=== PATIENT | female | born 1960 | race American Indian/Alaskan Native ===

== ENCOUNTER 2017-02-04 22:40 | Emergency (ER) | payer MEDICAID ==
[2017-02-05 00:18] LABS: Basophils % (Auto) 0.3 % (0.0-1.8); Eosinophils % (Auto) 0.8 % (0.0-4.3); Hematocrit 50.1 % (30.3-42.9); Hemoglobin 16.7 gm/dl (10.1-14.3); Mean Corpuscular HGB Conc 33 % (30-34); Mean Corpuscular Hemoglobin 30 pg (28-32); Mean Corpuscular Volume 90 fl (79-97); Platelet Count 323 K/mm3 (140-440); Red Blood Count 5.54 M/mm3 (3.65-5.03); Red Cell Distribution Width 14.2 % (13.2-15.2); White Blood Count 8.6 K/mm3 (4.5-11.0)
[2017-02-05 00:38] LABS: Alanine Aminotransferase 19 units/L (7-56); Albumin/Globulin Ratio 1.1 %; Alkaline Phosphatase 71 units/L (35-129); Anion Gap 27 mmol/L; BUN/Creatinine Ratio 13; Blood Urea Nitrogen 14 mg/dL (7-17); Calcium 9.5 mg/dL (8.4-10.2); Carbon Dioxide 19 mmol/L (22-30); Chloride 100.5 mmol/L (98-107); Glucose 197 mg/dL (65-100); Lipase 41 units/L (13-60); Potassium 3.6 mmol/L (3.6-5.0); Sodium 143 mmol/L (137-145); Total Protein 7.5 g/dL (6.3-8.2)
[2017-02-05] MEDS ORDERED: APRESOLINE IV ONE (00:55)
[2017-02-05] MEDS ORDERED: ZOFRAN IV ONE ×3 (00:55→09:06)
[2017-02-05] MEDS ORDERED: MORPHINE IV ONE ×3 (00:56→09:06)
[2017-02-05 03:58] LABS: Creatine Kinase MB 3.2 ng/mL (0.0-4.0)
[2017-02-05 04:00] LABS: Creatine Kinase 88 units/L (30-135)
--- NOTE | 2017-02-05 04:05 | Emergency Department Report ---
ED Abdominal Pain HPI - General Chief Complaint: Abdominal Pain Stated Complaint: ABD PAIN Time Seen by Provider: 02/05/17 00:54 Source: patient Mode of arrival: Wheelchair Limitations: No Limitations - History of Present Illness Initial Comments: 56 yo female who comes in today due to abdominal pain. She states that it has been present since yesterday. She admits to a hx of diabetes and also gastroparesis. She states that she takes zofran for it, as she is allergic to reglan. Abdominal pain described as 12/03, diffuse, with nausea. The patient admits to being treated in the past for a similar complaint. MD Complaint: abdominal pain -: days(s) (1) Location: diffuse Radiation: none Migration to: no migration Severity: severe Severity scale (0 -10): 10 Quality: aching, sharp Consistency: constant Improves With: medication, rest Worsens With: movement Context: other (diabetic gastroparesis ) Associated Symptoms: nausea Treatments Prior to Arrival: other (none) - Related Data Home Medications Medication Instructions Recorded Confirmed Last Taken Unobtainable 02/05/17 02/05/17 Unknown Allergies Allergy/AdvReac Type Severity Reaction Status Date / Time metoclopramide [From Reglan] AdvReac Unknown Verified 02/04/17 22:49 ED Review of Systems ROS: Stated complaint: ABD PAIN Other details as noted in HPI Constitutional: denies: chills, fever Eyes: denies: eye pain, eye discharge, vision change ENT: denies: ear pain, throat pain Respiratory: denies: cough, shortness of breath, wheezing Cardiovascular: denies: chest pain, palpitations Endocrine: no symptoms reported Gastrointestinal: as per HPI, abdominal pain Genitourinary: denies: urgency, dysuria, discharge Musculoskeletal: denies: back pain, joint swelling, arthralgia Skin: denies: rash, lesions Neurological: denies: headache, weakness, paresthesias Psychiatric: anxiety Hematological/Lymphatic: denies: easy bleeding, easy bruising ED Past Medical Hx - Past Medical History Hx Hypertension: Yes Hx Congestive Heart Failure: Yes Hx Diabetes: Yes Hx GERD: Yes Additional medical history: Gastroparesis - Surgical History Hx Cholecystectomy: Yes - Social History Smoking Status: Current Every Day Smoker Substance Use Type: Alcohol - Medications Home Medications: Home Medications Medication Instructions Recorded Confirmed Last Taken Type Unobtainable 02/05/17 02/05/17 Unknown History ED Physical Exam - General Limitations: No Limitations General appearance: anxious (crying ) - Head Head exam: Present: atraumatic, normocephalic - Eye Eye exam: Present: normal appearance - ENT ENT exam: Present: mucous membranes moist - Neck Neck exam: Present: normal inspection - Respiratory Respiratory exam: Present: normal lung sounds bilaterally. Absent: respiratory distress - Cardiovascular Cardiovascular Exam: Present: tachycardia - GI/Abdominal GI/Abdominal exam: Present: tenderness (diffusely ) - Extremities Exam Extremities exam: Present: normal inspection - Back Exam Back exam: Present: normal inspection - Neurological Exam Neurological exam: Present: alert, oriented X3 - Psychiatric Psychiatric exam: Present: anxious (crying ) - Skin Skin exam: Present: warm, dry, intact, normal color. Absent: rash ED Course Vital Signs 02/04/17 02/05/17 02/05/17 22:50 00:46 00:48 Temperature 98.5 F Pulse Rate 109 H 108 H 111 H Respiratory 20 21 22 Rate Blood Pressure 168/106 O2 Sat by Pulse 99 100 Oximetry 02/05/17 02/05/17 02/05/17 00:50 00:52 00:54 Temperature Pulse Rate 101 H 99 H 106 H Respiratory 20 37 H 38 H Rate Blood Pressure 215/138 215/138 O2 Sat by Pulse 98 100 100 Oximetry 02/05/17 02/05/17 02/05/17 00:57 01:00 01:54 Temperature Pulse Rate 106 H 106 H Respiratory 28 H 23 18 Rate Blood Pressure 215/138 O2 Sat by Pulse 100 100 Oximetry 02/05/17 02/05/17 02/05/17 01:56 02:00 02:01 Temperature Pulse Rate 108 H 103 H 108 H Respiratory 33 H 19 Rate Blood Pressure 215/138 215/138 215/138 O2 Sat by Pulse 100 100 Oximetry 02/05/17 02/05/17 02/05/17 02:02 02:30 03:00 Temperature Pulse Rate 98 H 104 H Respiratory 22 22 20 Rate Blood Pressure 199/112 177/100 O2 Sat by Pulse 96 99 Oximetry 02/05/17 02/05/17 02/05/17 03:30 03:44 04:00 Temperature Pulse Rate 109 H 102 H Respiratory 43 H 20 31 H Rate Blood Pressure 188/102 185/105 O2 Sat by Pulse 99 99 Oximetry 02/05/17 04:30 Temperature Pulse Rate 98 H Respiratory 16 Rate Blood Pressure 135/108 O2 Sat by Pulse 96 Oximetry - Reevaluation(s) Reevaluation #1: 02/05/17 06:[address] Gutiérrez. Dr. Gutiérrez to assume care of the patient. ED Medical Decision Making - Lab Data Result diagrams: 02/04/17 23:30 02/04/17 23:30 Critical care attestation.: If time is entered above; I have spent that time in minutes in the direct care of this critically ill patient, excluding procedure time. ED Disposition Condition: Stable Instructions: Abdominal Pain (ED) Referrals: LEONARDA WILCOX MD [Primary Care Provider] - 3-5 Days
--- NOTE | 2017-02-05 04:16 | XRay Report ---
FINAL REPORT EXAM: XR ABD SERIES W CXR 1V HISTORY: Abdominal pain. TECHNIQUE: A frontal radiograph of the chest and supine and erect frontal radiographs of the abdomen were obtained. No prior studies are available for comparison. FINDINGS: The heart is mildly enlarged. The lungs are clear bilaterally, without focal infiltrate or effusion. There is no pneumothorax. There is a nonspecific bowel gas pattern, with no abnormal bowel dilatation to suggest intestinal obstruction. No free air or air-fluid levels are seen on the erect film. There is residual stool seen in the right colon. Multiple vascular calcifications and calcified phleboliths are seen in the pelvis. There are moderate spondylotic and degenerative changes seen in the spine. There is also mild degenerative change at the left hip. IMPRESSION: No intestinal obstruction or free air. Cardiomegaly.
[2017-02-05] MEDS ORDERED: NACL ONE (04:40)
--- NOTE | 2017-02-05 06:53 | Cat Scan Report ---
FINAL REPORT EXAM: CT ABDOMEN PELVIS W CONTRAST. HISTORY: Abdominal pain. TECHNIQUE: Axial CT images of the abdomen and pelvis were obtained, following the administration of intravenous contrast only. Delayed axial images and coronal and sagittal reformatted images were also obtained. No prior studies are available for comparison. FINDINGS: There is mild diffuse fatty infiltration of the liver. The gallbladder is not discretely visualized. The biliary tree, pancreas, spleen, and kidneys are unremarkable. There is diffuse thickening of the bilateral adrenal glands, likely due to hyperplasia. There is suggestion of a superimposed 1.4 x 1.0 cm nodule in the inferior left adrenal gland, not fully characterized on this exam. Evaluation of the bowel is limited due to lack of oral contrast. There is a small hiatal hernia. The stomach is partially collapsed, not well evaluated. Underlying wall thickening at the distal stomach and proximal duodenum cannot be excluded. There is residual stool in the colon, particularly in the rectum. There is no intestinal obstruction or free air. Of note, the appendix is air-filled, normal in appearance. There are scattered diverticula in the colon. The abdominal aorta is normal in caliber. There is no pathologic abdominal or pelvic lymphadenopathy. There is no free or loculated fluid collection. The patient is status post hysterectomy. A 1.0 cm right adnexal/ovarian cyst is noted. The urinary bladder is moderately collapsed, not well evaluated. Minimal spondylotic changes are seen in the spine. There are mild degenerative changes at both sacroiliac joints and both hips. There are scattered foci of minimal linear scarring at both lung bases. There are additional scattered foci of subsegmental dependent atelectasis posteriorly. The heart is enlarged. IMPRESSION: 1. No intestinal obstruction or free air. Normal CT appearance of the appendix. Scattered colonic diverticula. 2. Partially collapsed stomach, and underlying wall thickening of the distal stomach/proximal duodenum cannot be excluded. Clinical correlation is recommended. 3. Mild diffuse fatty infiltration of the liver. 4. 1.4 x 1.0 cm nodule in the inferior left adrenal gland, not fully characterized. 5. 1.0 cm right ovarian cyst.
[2017-02-05] MEDS ORDERED: ZOFRAN ONE (09:03)
[2017-02-05] MEDS ORDERED: MORPHINE ONE (09:04)
--- NOTE | 2017-02-05 09:11 | Emergency Department Report ---
Blank Doc - Documentation Documentation: I examine Mrs. quiroga, she is lying in peds, comfortable in no acute distress she stated that her nausea is much better she still having some abdominal pain. I offer morphine 4 mg and Zofran 4 mg and I will give her prescription for Zofran and Ultram. I informed about her CT scan of the abdomen and pelvis results and advised that to follow up with her primary care physician in the next 2-3 days. I advised to return to the ER if her symptoms is not improving.
[2017-02-05 09:34] VITALS: BP 150/88
== END 2017-02-05 09:39 | disposition home or self-care (01) ==
LOC: ED 22:40
DX: R10.84 Generalized abdominal pain (principal); R11.0 Nausea
CPT/HCPCS: 36415; 74022; 74177; 80053; 82550; 82553; 83690; 84484; 85025; 96374; 96375; 96376; 99285; J0360; J2270; J2405; Q9967

== ENCOUNTER 2017-02-25 19:41 | Emergency (ER) | payer MEDICAID ==
[2017-02-25] MEDS ORDERED: NACL 0.9% 1000 ML 1,000 ML IV ONE ×2 (20:12→22:15)
[2017-02-25] MEDS ORDERED: ZOFRAN IV ONE (20:17)
[2017-02-25] MEDS ORDERED: ZOFRAN ODT PO ONE (20:19)
[2017-02-25] MEDS ORDERED: ZOFRAN ONE (20:21)
[2017-02-25] MEDS ORDERED: MORPHINE IV ONE (20:27)
[2017-02-25 20:43] LABS: Basophils % (Auto) 0.5 % (0.0-1.8); Eosinophils # (Auto) 0.1 K/mm3 (0.0-0.4); Eosinophils % (Auto) 0.7 % (0.0-4.3); Hematocrit 51.4 % (30.3-42.9); Hemoglobin 17.2 gm/dl (10.1-14.3); Lymphocytes # (Auto) 2.1 K/mm3 (1.2-5.4); Lymphocytes % (Auto) 23.2 % (13.4-35.0); Mean Corpuscular HGB Conc 33 % (30-34); Mean Corpuscular Hemoglobin 30 pg (28-32); Mean Corpuscular Volume 90 fl (79-97); Monocytes # (Auto) 0.7 K/mm3 (0.0-0.8); Monocytes % (Auto) 8.1 % (0.0-7.3); Platelet Count 346 K/mm3 (140-440); Red Blood Count 5.71 M/mm3 (3.65-5.03); Red Cell Distribution Width 14.1 % (13.2-15.2)
--- NOTE | 2017-02-25 20:50 | Emergency Department Report ---
ED N/V/D HPI - General Chief complaint: Nausea/Vomiting/Diarrhea Stated complaint: ABD PAIN Time Seen by Provider: 02/25/17 20:16 Source: patient, EMS Mode of arrival: Stretcher Limitations: No Limitations - History of Present Illness Initial comments: Patient with known gastroparesis seen last month at which time morphine and zofran controlled her symptoms. She was voluntarily trying to vomit but able to talk on initial evaluation. MD complaint: vomiting, abdominal pain -: week(s) (5) Description of Vomiting: bilious Description of Diarrhea: other (none) Associated Abdominal Pain: Yes Location: diffuse Radiation: none Severity: severe Pain Scale: 10 Quality: sharp Consistency: constant, colicky Improves with: none Worsens with: eating, movement Context: other (Diabetic gastroparesis) Associated Symptoms: nausea/vomiting - Related Data Previous Rx's Medication Instructions Recorded Last Taken Type Ondansetron [Zofran Odt] 4 mg PO Q8HR PRN #14 tab.rapdis 02/05/17 Unknown Rx traMADol [Ultram 50 MG tab] 50 mg PO Q4HR PRN #14 tablet 02/05/17 Unknown Rx traMADol [Ultram 50 MG tab] 50 mg PO Q6HR PRN #12 tablet 02/26/17 Unknown Rx Allergies Allergy/AdvReac Type Severity Reaction Status Date / Time metoclopramide [From Reglan] AdvReac Unknown Verified 02/04/17 22:49 ED Review of Systems ROS: Stated complaint: ABD PAIN Other details as noted in HPI Constitutional: denies: chills, fever Eyes: denies: eye pain, eye discharge, vision change ENT: denies: ear pain, throat pain Respiratory: denies: cough, shortness of breath, wheezing Cardiovascular: denies: chest pain, palpitations Endocrine: no symptoms reported Gastrointestinal: abdominal pain, nausea, vomiting. denies: diarrhea Genitourinary: denies: urgency, dysuria, discharge Musculoskeletal: denies: back pain, joint swelling, arthralgia Skin: denies: rash, lesions Neurological: denies: headache, weakness, paresthesias Psychiatric: denies: anxiety, depression Hematological/Lymphatic: denies: easy bleeding, easy bruising ED Past Medical Hx - Past Medical History Hx Hypertension: Yes Hx Congestive Heart Failure: Yes Hx Diabetes: Yes Hx GERD: Yes Additional medical history: Gastroparesis - Surgical History Hx Cholecystectomy: Yes - Social History Smoking Status: Never Smoker Substance Use Type: None - Medications Home Medications: Home Medications Medication Instructions Recorded Confirmed Last Taken Type Ondansetron [Zofran Odt] 4 mg PO Q8HR PRN #14 tab.rapdis 02/05/17 Unknown Rx traMADol [Ultram 50 MG tab] 50 mg PO Q4HR PRN #14 tablet 02/05/17 Unknown Rx traMADol [Ultram 50 MG tab] 50 mg PO Q6HR PRN #12 tablet 02/26/17 Unknown Rx ED Physical Exam - General Limitations: No Limitations General appearance: alert, in no apparent distress - Head Head exam: Present: atraumatic, normocephalic - Eye Eye exam: Present: normal appearance - ENT ENT exam: Present: mucous membranes moist - Neck Neck exam: Present: normal inspection - Respiratory Respiratory exam: Present: normal lung sounds bilaterally. Absent: respiratory distress - Cardiovascular Cardiovascular Exam: Present: regular rate, normal rhythm. Absent: systolic murmur, diastolic murmur, rubs, gallop - GI/Abdominal GI/Abdominal exam: Present: soft, tenderness (diffusely with no peritonitis.), normal bowel sounds - Extremities Exam Extremities exam: Present: normal inspection - Back Exam Back exam: Present: normal inspection - Neurological Exam Neurological exam: Present: alert, oriented X3 - Psychiatric Psychiatric exam: Present: normal affect, normal mood - Skin Skin exam: Present: warm, dry, intact, normal color. Absent: rash ED Course Vital Signs 02/25/17 02/25/17 02/25/17 19:56 20:00 20:05 Temperature 98.4 F Pulse Rate 125 H Respiratory 18 Rate Blood Pressure 218/160 O2 Sat by Pulse 100 97 Oximetry 02/25/17 02/25/17 02/25/17 20:15 20:30 20:45 Temperature Pulse Rate 104 H 101 H 97 H Respiratory 41 H 31 H 17 Rate Blood Pressure 218/160 218/130 218/130 O2 Sat by Pulse 99 99 99 Oximetry 02/25/17 02/25/17 02/25/17 21:00 21:33 21:36 Temperature 98.4 F Pulse Rate 100 H 98 H Respiratory 22 Rate Blood Pressure 211/135 211/135 O2 Sat by Pulse 99 99 Oximetry ED Medical Decision Making - Lab Data Result diagrams: 02/25/17 20:25 02/25/17 20:25 Elevated hgb and slightly increased Creatinine. - Radiology Data Radiology results: report reviewed No acute changes from 02/05/17 CT. Has fatty liver and mild gastritis with wall thickening. - Medical Decision Making Patient with gastroparesis with last Rx of Tramadol in early January. Will write tramadol and send home. No acute distress. Critical care attestation.: If time is entered above; I have spent that time in minutes in the direct care of this critically ill patient, excluding procedure time. ED Disposition Clinical Impression: Gastroparesis due to DM Disposition: DC-01 TO HOME OR SELFCARE Is pt being admited?: No Does the pt Need Aspirin: No Condition: Good Instructions: Diabetes Mellitus Type 2 in Adults (ED) Prescriptions: traMADol [Ultram 50 MG tab] 50 mg PO Q6HR PRN #12 tablet PRN Reason: Pain Referrals: [facility] [Outside] - 3-5 Days Time of Disposition: 00:23
[2017-02-25 21:03] LABS: Albumin 4.4 g/dL (3.9-5); Calcium 10.2 mg/dL (8.4-10.2)
[2017-02-25] MEDS ORDERED: BENTYL IM ONE (21:12)
[2017-02-25] MEDS ORDERED: LOPRESSOR IV ONE (21:12)
[2017-02-25] MEDS ORDERED: NACL ONE (22:21)
[2017-02-25] MEDS ORDERED: DILAUDID IV ONE (22:58)
[2017-02-25] MEDS ORDERED: DILAUDID ONE (23:02)
[2017-02-26 01:22] VITALS: BP 200/128
--- NOTE | 2017-02-26 04:50 | Cat Scan Report ---
FINAL REPORT PROCEDURE: CT ABDOMEN PELVIS W CON TECHNIQUE: Computerized axial tomography of the abdomen and pelvis was performed after the IV injection of iodinated nonionic contrast. HISTORY: abdominal pain COMPARISON: 02/05/2017 FINDINGS: Visualized lower thorax: No significant abnormality. Liver: Normal size and attenuation. Spleen: Normal size and attenuation. Gallbladder and biliary system: There has been a cholecystectomy. The bile ducts are normal in caliber.. Pancreas: Normal. Adrenals: Normal. Kidneys: Normal. GI tract: There is mucosal thickening of the stomach antrum which could be evidence of gastritis. There is no obstruction or mass. The small bowel, colon and appendix are normal.. Lymph nodes and mesentery: Normal. Vasculature: There is calcified plaque in the abdominal aorta. There is no aneurysm.. Bladder: Normal. Reproductive organs: There has been a hysterectomy. Peritoneum: There is no ascites, free air, abscess or adenopathy.. Musculoskeletal structures: No significant abnormality. Other: None. IMPRESSION: There has been a cholecystectomy. The bile ducts are normal in caliber.. There is mucosal thickening of the stomach antrum which could be evidence of gastritis. There is no obstruction or mass. The small bowel, colon and appendix are normal.. There has been a hysterectomy. There is no ascites, free air, abscess or adenopathy..
== END 2017-02-26 02:09 | disposition home or self-care (01) ==
LOC: ED 19:41
DX: E11.43 Type 2 diabetes mellitus with diabetic autonomic (poly)neuropathy (principal); K31.84 Gastroparesis; I11.0 Hypertensive heart disease with heart failure; I50.9 Heart failure, unspecified; K21.9 Gastro-esophageal reflux disease without esophagitis; Z88.8 Allergy status to other drugs, medicaments and biological substances
CPT/HCPCS: 36415; 74177; 80053; 82962; 85025; 96361; 96372; 96374; 96375; 99284; J0500; J1170; J2270; J2405; J7030; Q9967; J1815

== ENCOUNTER 2017-03-03 13:04 | Emergency (ER) | payer MEDICAID ==
[2017-03-03 14:26] LABS: Basophils % (Auto) 0.7 % (0.0-1.8); Eosinophils # (Auto) 0.1 K/mm3 (0.0-0.4); Eosinophils % (Auto) 2.1 % (0.0-4.3); Hematocrit 46.6 % (30.3-42.9); Hemoglobin 15.7 gm/dl (10.1-14.3); Lymphocytes # (Auto) 1.9 K/mm3 (1.2-5.4); Lymphocytes % (Auto) 28.2 % (13.4-35.0); Mean Corpuscular HGB Conc 34 % (30-34); Mean Corpuscular Hemoglobin 31 pg (28-32); Mean Corpuscular Volume 91 fl (79-97); Monocytes # (Auto) 0.7 K/mm3 (0.0-0.8); Monocytes % (Auto) 10.5 % (0.0-7.3); Platelet Count 263 K/mm3 (140-440); Red Blood Count 5.12 M/mm3 (3.65-5.03); Red Cell Distribution Width 14.3 % (13.2-15.2)
[2017-03-03 14:48] LABS: Albumin 3.8 g/dL (3.9-5); Calcium 9.1 mg/dL (8.4-10.2)
[2017-03-03 16:24] LABS: Bilirubin,Urine NEG (Negative); Blood,Urine NEG (Negative); Color,Urine Yellow (Yellow); Nitrite,Urine NEG (Negative); Urobilinogen,Urine < 2.0 mg/dL (<2.0)
[2017-03-04 00:42] VITALS: BP 165/92
[2017-03-04] MEDS ORDERED: ZOFRAN IV ONE (01:05)
[2017-03-04] MEDS ORDERED: DILAUDID IV ONE (01:05)
[2017-03-04] MEDS ORDERED: BENTYL PO ONE (01:05)
[2017-03-04] MEDS ORDERED: CARAFATE PO ONE (01:05)
[2017-03-04] MEDS ORDERED: DILAUDID ONE (02:22)
--- NOTE | 2017-03-04 02:24 | Emergency Department Report ---
ED General Adult HPI - General Chief complaint: Abdominal Pain Stated complaint: NAUSEA/VOMITING/PAIN ALL OVER Time Seen by Provider: 03/04/17 00:55 Source: patient, RN notes reviewed, old records reviewed Mode of arrival: Ambulatory Limitations: No Limitations - History of Present Illness Initial comments: This is a 56-year-old female, patient is previously unknown to this provider, patient has a past medical history of diabetes, GERD, hypertension, gastroparesis. Patient has been seen at least twice in the past month for gastroparesis symptoms. Patient's had 2 CAT scans of the abdomen and pelvis in the past month as well, which have been negative for significant findings, and multiple incidental findings. Patient presents to the ER today with a complaint of acute on chronic abdominal pain. Her abdominal pain is achy and sharp" all over." It increases with palpation, decreases with rest, and pain medication. Patient reports difficulty eating, she reports that even spells of food upset her. Patient's reports that she is passing gas, defecating, denies fevers, chills, chest pain, service of breath, urinary symptoms, vaginal discharge. -: Gradual Location: abdomen Radiation: abdomen Severity scale (0 -10): 0 Quality: burning, stabbing, aching Consistency: intermittent Improves with: medication, rest Worsens with: eating Associated Symptoms: loss of appetite, malaise, nausea/vomiting. denies: confusion, chest pain, cough, diaphoresis, fever/chills, headaches, rash, seizure, shortness of breath, syncope, weakness - Related Data Previous Rx's Medication Instructions Recorded Last Taken Type Ondansetron [Zofran Odt] 4 mg PO Q8HR PRN #14 tab.rapdis 02/05/17 Unknown Rx traMADol [Ultram 50 MG tab] 50 mg PO Q4HR PRN #14 tablet 02/05/17 Unknown Rx traMADol [Ultram 50 MG tab] 50 mg PO Q6HR PRN #12 tablet 02/26/17 Unknown Rx Dicyclomine [Bentyl] 10 mg PO QID PRN #20 capsule 03/04/17 Unknown Rx Famotidine [Pepcid] 20 mg PO QDAY #30 tablet 03/04/17 Unknown Rx Promethazine [Phenergan SUPPOS] 50 mg MO Q6H PRN #20 supp.rect 03/04/17 Unknown Rx Allergies Allergy/AdvReac Type Severity Reaction Status Date / Time metoclopramide [From Reglan] AdvReac Unknown Verified 02/04/17 22:49 ED Review of Systems ROS: Stated complaint: NAUSEA/VOMITING/PAIN ALL OVER Other details as noted in HPI ED Past Medical Hx - Past Medical History Hx Hypertension: Yes Hx Congestive Heart Failure: Yes Hx Diabetes: Yes Hx GERD: Yes Additional medical history: Gastroparesis - Surgical History Hx Cholecystectomy: Yes - Social History Smoking Status: Current Every Day Smoker Substance Use Type: Alcohol - Medications Home Medications: Home Medications Medication Instructions Recorded Confirmed Last Taken Type Ondansetron [Zofran Odt] 4 mg PO Q8HR PRN #14 tab.rapdis 02/05/17 Unknown Rx traMADol [Ultram 50 MG tab] 50 mg PO Q4HR PRN #14 tablet 02/05/17 Unknown Rx traMADol [Ultram 50 MG tab] 50 mg PO Q6HR PRN #12 tablet 02/26/17 Unknown Rx Dicyclomine [Bentyl] 10 mg PO QID PRN #20 capsule 03/04/17 Unknown Rx Famotidine [Pepcid] 20 mg PO QDAY #30 tablet 03/04/17 Unknown Rx Promethazine [Phenergan SUPPOS] 50 mg MO Q6H PRN #20 supp.rect 03/04/17 Unknown Rx ED Physical Exam - General Limitations: No Limitations General appearance: alert, in no apparent distress - Head Head exam: Present: atraumatic, normocephalic - Eye Eye exam: Present: normal appearance, EOMI. Absent: nystagmus - ENT ENT exam: Present: normal exam, normal orophraynx, mucous membranes moist, normal external ear exam - Neck Neck exam: Present: normal inspection, full ROM - Respiratory Respiratory exam: Present: normal lung sounds bilaterally. Absent: respiratory distress - Cardiovascular Cardiovascular Exam: Present: regular rate, normal rhythm, normal heart sounds. Absent: systolic murmur, diastolic murmur, rubs, gallop - GI/Abdominal GI/Abdominal exam: Present: soft, normal bowel sounds. Absent: distended, tenderness, guarding, rebound, rigid, pulsatile mass - Extremities Exam Extremities exam: Present: normal inspection, full ROM, normal capillary refill. Absent: pedal edema, joint swelling, calf tenderness - Back Exam Back exam: Present: normal inspection, full ROM. Absent: tenderness, CVA tenderness (R), paraspinal tenderness, vertebral tenderness - Neurological Exam Neurological exam: Present: alert, oriented X3, CN II-XII intact, normal gait. Absent: motor sensory deficit, other (Extraocular movements intact. Tongue midline. No facial droop. Facial sensation intact to light touch in the V1, V2 , V3 distribution bilaterally. 5 and 5 strength in 4 extremities.. Sensation is intact to light touch in 4 extremities.) - Psychiatric Psychiatric exam: Present: anxious - Skin Skin exam: Present: warm, dry, intact, normal color. Absent: rash ED Course Vital Signs 03/03/17 03/03/17 03/04/17 13:48 23:19 00:05 Temperature 98.2 F 98.3 F 98.7 F Pulse Rate 84 82 78 Respiratory 18 18 18 Rate Blood Pressure 160/106 183/109 Blood Pressure 165/92 [Left] O2 Sat by Pulse 97 99 100 Oximetry - Reevaluation(s) Reevaluation #1: 03/04/17 02:58 Patient feels improved, tolerating liquid feeds, vital signs unremarkable with the exception of elevated blood pressure, patient will be discharged at this time, she can follow up with outpatient primary care or gastroenterology. ED Medical Decision Making - Lab Data Result diagrams: 03/03/17 14:06 03/03/17 14:06 Vital Signs 03/03/17 03/03/17 03/04/17 13:48 23:19 00:05 Temperature 98.2 F 98.3 F 98.7 F Pulse Rate 84 82 78 Respiratory 18 18 18 Rate Blood Pressure 160/106 183/109 Blood Pressure 165/92 [Left] O2 Sat by Pulse 97 99 100 Oximetry Lab Results 03/03/17 03/03/17 03/03/17 Range/Units 14:06 14:06 15:30 WBC 6.6 (4.5-11.0) K/mm3 RBC 5.12 H (3.65-5.03) M/mm3 Hgb 15.7 H (10.1-14.3) gm/dl Hct 46.6 H (30.3-42.9) % MCV 91 (79-97) fl MCH 31 (28-32) pg MCHC 34 (30-34) % RDW 14.3 (13.2-15.2) % Plt Count 263 (140-440) K/mm3 Lymph % (Auto) 28.2 (13.4-35.0) % [place] % (Auto) 10.5 H (0.0-7.3) % Eos % (Auto) 2.1 (0.0-4.3) % Baso % (Auto) 0.7 (0.0-1.8) % Lymph # 1.9 (1.2-5.4) K/mm3 [place] # 0.7 (0.0-0.8) K/mm3 Eos # 0.1 (0.0-0.4) K/mm3 Baso # 0.0 (0.0-0.1) K/mm3 Seg Neutrophils % 58.5 (40.0-70.0) % Seg Neutrophils # 3.9 (1.8-7.7) K/mm3 Sodium 139 (137-145) mmol/L Potassium 3.7 (3.6-5.0) mmol/L Chloride 97.5 L (98-107) mmol/L Carbon Dioxide 28 (22-30) mmol/L Anion Gap 17 mmol/L BUN 17 (7-17) mg/dL Creatinine 1.2 (0.7-1.2) mg/dL Estimated GFR 57 ml/min BUN/Creatinine Ratio 14 % Glucose 181 H (65-100) mg/dL Calcium 9.1 (8.4-10.2) mg/dL Total Bilirubin 0.40 (0.1-1.2) mg/dL AST 13 (5-40) units/L ALT 9 (7-56) units/L Alkaline Phosphatase 54 (35-129) units/L Total Protein 6.8 (6.3-8.2) g/dL Albumin 3.8 L (3.9-5) g/dL Albumin/Globulin Ratio 1.3 % Urine Color Yellow (Yellow) Urine Turbidity Clear (Clear) Urine pH 6.0 (5.0-7.0) Ur Specific [place] 1.023 (1.003-1.030) Urine Protein 100 mg/dl (Negative) mg/dL Urine Glucose (UA) 50 (Negative) mg/dL Urine Ketones Neg (Negative) mg/dL Urine Blood Neg (Negative) Urine Nitrite Neg (Negative) Urine Bilirubin Neg (Negative) Urine Urobilinogen < 2.0 (<2.0) mg/dL Ur Leukocyte Esterase Lg (Negative) Urine WBC (Auto) 14.0 H (0.0-6.0) /HPF Urine RBC (Auto) 4.0 (0.0-6.0) /HPF U Epithel Cells (Auto) 9.0 (0-13.0) /HPF - Radiology Data Radiology results: report reviewed, image reviewed CT scan report from 02/25/2017 is reviewed and appreciated, prior CT scan report from 02/04/2017 is also reviewed and appreciated. - Medical Decision Making Differential diagnosis, including but not limited to: Cyclic vomiting syndrome, fibromyalgia, gastroparesis Assessment and plan: 56-year-old female with acute on chronic abdominal pain, patient's had multiple thorough evaluations at this hospital recently for similar symptoms. On my examination she is afebrile with reassuring vital signs with the exception of hypertension and elevated blood pressure. Patient' s had 2 CAT scans in the past month, her abdomen is soft and benign, I don't believe she requires advanced imaging at this time. We will treat her with hydromorphone, nausea medicine and IV fluids. Extensive discussion had with patient about natural history of gastroparesis, she wanted to follow up with outpatient gastroenterology. Critical care attestation.: If time is entered above; I have spent that time in minutes in the direct care of this critically ill patient, excluding procedure time. ED Disposition Clinical Impression: Abdominal pain Disposition: DC-01 TO HOME OR SELFCARE Is pt being admited?: No Does the pt Need Aspirin: No Condition: Stable Instructions: Abdominal Pain (ED) Additional Instructions: Continue current outpatient medications. Continue recent prescriptions that were recently written for U at this hospital. If patient develops intractable nausea, vomiting, and Zofran does not work, use the rectal Phenergan suppository as directed. Follow-up with a primary care doctor or sheet sorter within the next 7-[address] Lucian Orozco is a local sheet sorter. [facility] is a local gastroenterology practice. Return to the ER right away with new pain, worsening pain, migration of pain, fevers, chills, lethargy, irritability, projectile vomiting, change in mental status, confusion , inability to tolerate liquid feeds. Prescriptions: Dicyclomine [Bentyl] 10 mg PO QID PRN #20 capsule PRN Reason: Pain Famotidine [Pepcid] 20 mg PO QDAY #30 tablet Promethazine [Phenergan SUPPOS] 50 mg MO Q6H PRN #20 supp.rect PRN Reason: Nausea Referrals: PRIMARY CARE, [Primary Care Provider] - 3-5 Days LUCIAN OROZCO MD [Staff Physician] - 3-5 Days [facility] [Provider Group] - 3-5 Days
== END 2017-03-04 04:00 | disposition home or self-care (01) ==
LOC: ED 13:04
DX: R10.84 Generalized abdominal pain (principal); G89.29 Other chronic pain; I50.9 Heart failure, unspecified; M19.90 Unspecified osteoarthritis, unspecified site; E11.9 Type 2 diabetes mellitus without complications; K21.9 Gastro-esophageal reflux disease without esophagitis; F17.200 Nicotine dependence, unspecified, uncomplicated; Z88.8 Allergy status to other drugs, medicaments and biological substances
CPT/HCPCS: 36415; 80053; 81001; 85025; 96374; 96375; 99284; J1170; J2405

== ENCOUNTER 2017-04-14 14:57 | Emergency (ER) | payer MEDICAID ==
[2017-04-14 15:56] LABS: Basophils % (Auto) 0.3 % (0.0-1.8); Eosinophils # (Auto) 0.1 K/mm3 (0.0-0.4); Eosinophils % (Auto) 1.8 % (0.0-4.3); Hematocrit 50.4 % (30.3-42.9); Hemoglobin 16.9 gm/dl (10.1-14.3); Lymphocytes # (Auto) 2.7 K/mm3 (1.2-5.4); Lymphocytes % (Auto) 33.7 % (13.4-35.0); Mean Corpuscular HGB Conc 34 % (30-34); Mean Corpuscular Hemoglobin 31 pg (28-32); Mean Corpuscular Volume 91 fl (79-97); Monocytes % (Auto) 12.4 % (0.0-7.3); Platelet Count 313 K/mm3 (140-440); Red Blood Count 5.54 M/mm3 (3.65-5.03); Red Cell Distribution Width 15.1 % (13.2-15.2)
[2017-04-14] MEDS ORDERED: NITROSTAT SL ONE (16:10)
[2017-04-14 16:17] LABS: Alanine Aminotransferase 15 units/L (7-56); Albumin 4.1 g/dL (3.9-5); BUN/Creatinine Ratio 16; Blood Urea Nitrogen 18 mg/dL (7-17); Calcium 9.9 mg/dL (8.4-10.2); Hemolysis Index 15
[2017-04-14] MEDS ORDERED: ZOFRAN IV ONE ×2 (16:18→16:54)
[2017-04-14] MEDS ORDERED: ZOFRAN ONE (16:18)
[2017-04-14] MEDS ORDERED: DILAUDID IV ONE ×2 (16:53→19:34)
[2017-04-14] MEDS ORDERED: LASIX IV ONE (16:54)
--- NOTE | 2017-04-14 16:58 | Emergency Department Report ---
ED Abdominal Pain HPI - General Chief Complaint: Abdominal Pain Stated Complaint: FLU LIKE SYMPTOMS Time Seen by Provider: 04/14/17 16:50 Source: patient, EMS Mode of arrival: Ambulatory Limitations: No Limitations - History of Present Illness Initial Comments: Patient is 56 years old female history of diabetes hypertension, gastroparesis and congestive heart failure. Presented to the ER with generalized abdominal pain, nausea and vomiting started this morning. Patient describes her pain as diffuse crampy in nature. Patient denied any fever, chest pain cough. MD Complaint: abdominal pain -: This morning Location: diffuse Radiation: none Quality: cramping Associated Symptoms: nausea, vomiting. denies: constipation, dysuria, hematemesis, hematochezia, melena, hematuria, anorexia, syncope - Related Data Previous Rx's Medication Instructions Recorded Last Taken Type Ondansetron [Zofran Odt] 4 mg PO Q8HR PRN #14 tab.rapdis 02/05/17 Unknown Rx traMADol [Ultram 50 MG tab] 50 mg PO Q4HR PRN #14 tablet 02/05/17 Unknown Rx traMADol [Ultram 50 MG tab] 50 mg PO Q6HR PRN #12 tablet 02/26/17 Unknown Rx Dicyclomine [Bentyl] 10 mg PO QID PRN #20 capsule 03/04/17 Unknown Rx Famotidine [Pepcid] 20 mg PO QDAY #30 tablet 03/04/17 Unknown Rx Promethazine [Phenergan SUPPOS] 50 mg [place] Q6H PRN #20 supp.rect 03/04/17 Unknown Rx Sucralfate [Carafate] 1 gm PO Q6HR #120 tablet 03/04/17 Unknown Rx HYDROcodone/APAP 5-325 [[place] 1 each PO Q6HR PRN #14 tablet 04/14/17 Unknown Rx 5/325] Ondansetron [Zofran Odt] 4 mg PO Q8HR PRN #14 tab.rapdis 04/14/17 Unknown Rx Promethazine HCl [Phenergan SUPPOS] 25 mg RC TID PRN #30 supp.rect 04/14/17 Unknown Rx Allergies Allergy/AdvReac Type Severity Reaction Status Date / Time metoclopramide [From Reglan] AdvReac Unknown Verified 02/04/17 22:49 ED Review of Systems ROS: Stated complaint: FLU LIKE SYMPTOMS Other details as noted in HPI Comment: All other systems reviewed and negative Constitutional: denies: chills, fever Respiratory: shortness of breath Cardiovascular: denies: chest pain, palpitations, dyspnea on exertion Gastrointestinal: abdominal pain, nausea, vomiting. denies: diarrhea, constipation, hematemesis Genitourinary: denies: urgency ED Past Medical Hx - Past Medical History Previous Medical History?: Yes Hx Hypertension: Yes Hx Congestive Heart Failure: Yes Hx Diabetes: Yes Hx GERD: Yes Additional medical history: Gastroparesis - Surgical History Past Surgical History?: Yes Hx Cholecystectomy: Yes - Social History Smoking Status: Current Every Day Smoker Substance Use Type: Alcohol - Medications Home Medications: Home Medications Medication Instructions Recorded Confirmed Last Taken Type Ondansetron [Zofran Odt] 4 mg PO Q8HR PRN #14 tab.rapdis 02/05/17 Unknown Rx traMADol [Ultram 50 MG tab] 50 mg PO Q4HR PRN #14 tablet 02/05/17 Unknown Rx traMADol [Ultram 50 MG tab] 50 mg PO Q6HR PRN #12 tablet 02/26/17 Unknown Rx Dicyclomine [Bentyl] 10 mg PO QID PRN #20 capsule 03/04/17 Unknown Rx Famotidine [Pepcid] 20 mg PO QDAY #30 tablet 03/04/17 Unknown Rx Promethazine [Phenergan SUPPOS] 50 mg [place] Q6H PRN #20 supp.rect 03/04/17 Unknown Rx Sucralfate [Carafate] 1 gm PO Q6HR #120 tablet 03/04/17 Unknown Rx HYDROcodone/APAP 5-325 [[place] 1 each PO Q6HR PRN #14 tablet 04/14/17 Unknown Rx 5/325] Ondansetron [Zofran Odt] 4 mg PO Q8HR PRN #14 tab.rapdis 04/14/17 Unknown Rx Promethazine HCl [Phenergan SUPPOS] 25 mg RC TID PRN #30 supp.rect 04/14/17 Unknown Rx ED Physical Exam - General Limitations: No Limitations General appearance: alert, other (patient is actively vomiting) - Head Head exam: Present: atraumatic, normocephalic - Eye Eye exam: Present: normal appearance, PERRL - ENT ENT exam: Present: mucous membranes dry - Neck Neck exam: Present: normal inspection, full ROM. Absent: tenderness, meningismus, lymphadenopathy - Respiratory Respiratory exam: Present: normal lung sounds bilaterally. Absent: respiratory distress, wheezes, rales, rhonchi, stridor, chest wall tenderness, accessory muscle use, decreased breath sounds, prolonged expiratory - Cardiovascular Cardiovascular Exam: Present: regular rate, normal rhythm, normal heart sounds - GI/Abdominal GI/Abdominal exam: Present: soft, tenderness (generalized tenderness), normal bowel sounds. Absent: distended, guarding, rebound, rigid, organomegaly, mass, bruit, pulsatile mass, hernia - Extremities Exam Extremities exam: Present: normal inspection, full ROM, normal capillary refill - Back Exam Back exam: Present: normal inspection, full ROM. Absent: CVA tenderness (L) - Neurological Exam Neurological exam: Present: alert, oriented X3, CN II-XII intact, normal gait - Skin Skin exam: Present: warm, dry, intact ED Course Vital Signs 04/14/17 04/14/17 04/14/17 15:28 15:42 15:46 Temperature 98.7 F Pulse Rate 106 H 102 H 100 H Respiratory 22 23 17 Rate Blood Pressure 202/130 205/134 Blood Pressure [Right] O2 Sat by Pulse 95 98 Oximetry 04/14/17 04/14/17 04/14/17 16:00 16:16 16:22 Temperature Pulse Rate 97 H 128 H 114 H Respiratory 22 25 H Rate Blood Pressure 205/134 210/144 210/144 Blood Pressure [Right] O2 Sat by Pulse 97 96 Oximetry 04/14/17 04/14/17 04/14/17 16:30 16:46 17:00 Temperature Pulse Rate 104 H 102 H 106 H Respiratory 25 H 32 H 27 H Rate Blood Pressure 184/125 184/125 210/144 Blood Pressure [Right] O2 Sat by Pulse 92 96 93 Oximetry 04/14/17 04/14/17 04/14/17 17:09 17:16 17:30 Temperature Pulse Rate 91 H 89 Respiratory 14 15 15 Rate Blood Pressure 202/138 172/109 Blood Pressure [Right] O2 Sat by Pulse 100 86 90 Oximetry 04/14/17 04/14/17 04/14/17 18:03 18:09 18:16 Temperature 97.8 F Pulse Rate 96 H 97 H 98 H Respiratory 11 L 28 H 16 Rate Blood Pressure 204/134 204/134 Blood Pressure 204/154 [Right] O2 Sat by Pulse 94 95 Oximetry 04/14/17 04/14/17 04/14/17 18:30 18:52 19:00 Temperature Pulse Rate 89 92 H 89 Respiratory 15 13 14 Rate Blood Pressure 173/106 172/109 171/106 Blood Pressure [Right] O2 Sat by Pulse 93 97 100 Oximetry 04/14/17 04/14/17 04/14/17 19:16 19:30 19:49 Temperature 98 F Pulse Rate 88 86 Respiratory 13 14 Rate Blood Pressure 157/103 180/103 Blood Pressure 180/103 [Right] O2 Sat by Pulse 96 94 Oximetry 04/14/17 20:56 Temperature 98 F Pulse Rate 77 Respiratory 16 Rate Blood Pressure Blood Pressure 159/96 [Right] O2 Sat by Pulse Oximetry - Reevaluation(s) Reevaluation #1: 04/14/17 19:33 Patient stated that she is feeling much better, her abdominal pain subside significantly. No vomiting. ED Medical Decision Making - Lab Data Result diagrams: 04/14/17 15:35 04/14/17 15:35 - Radiology Data Radiology results: report reviewed Referring Physician: FLEX COLON Patient Name: THERESA LOCO Date of : 1960 Sex: Female Report Date: 2017-04-14 Report Status: Finalized Findings [address] [address] XRay Report Signed Patient: THERESA LOCO MR#: [id number] : 1960 Acct:[id number] Age/Sex: 56 / F ADM Date: 04/14/17 Loc: ED Attending Dr: Ordering Physician: FLEX COLON Date of Service: 04/14/17 Procedure(s): XR abdomen 2V Accession Number(s): [id number] cc: FLEX COLON Fluoro Time In Minutes: FINAL REPORT EXAM: XR ABDOMEN 2V HISTORY: abdominal pain TECHNIQUE: Supine and upright abdomen PRIORS: None. FINDINGS: Moderate amount of stool and gas present within the colon. No evidence of colonic or small bowel dilatation. No signs of free air. No abnormal calcifications are identified. IMPRESSION: Nonobstructive bowel gas pattern. No acute abnormality seen. Transcribed By: BETH Dictated By: CHRISTA BARTON MD Electronically Authenticated By: CHRISTA BARTON MD Signed Date/Time: 04/14/17 132 DD/ 1321 TD/TT: 04/14/17 132 Referring Physician: FLEX COLON Patient Name: THERESA LOCO Date of : 1960 Sex: Female Report Date: 2017-04-14 Report Status: Finalized Findings [facility] [address] [place] [address] XRay Report Signed Patient: THERESA LOCO MR#: [id number] : 1960 Acct:[id number] Age/Sex: 56 / F ADM Date: 04/14/17 Loc: ED Attending Dr: Ordering Physician: FLEX COLON Date of Service: 04/14/17 Procedure(s): XR chest 1V ap Accession Number(s): [id number] cc: FLEX COLON Fluoro Time In Minutes: FINAL REPORT EXAM: XR CHEST 1V AP HISTORY: Shortness of breath TECHNIQUE: upright single view chest PRIORS: Correlation made to prior exam of February 05, 2017 FINDINGS: Cardiac and mediastinal contours are unremarkable. No focal pulmonary infiltrate is identified. No pleural fluid collection seen. Pulmonary vasculature is unremarkable. IMPRESSION: Negative single-view chest Transcribed By: BETH Dictated By: CHRISTA BARTON MD Electronically Authenticated By: CHRISTA BARTON MD Signed Date/Time: 04/14/17 1259 DD/ 1259 TD/TT: 04/14/17 1259 Critical care attestation.: If time is entered above; I have spent that time in minutes in the direct care of this critically ill patient, excluding procedure time. ED Disposition Clinical Impression: Abdominal pain, Gastroparesis Disposition: DC-01 TO HOME OR SELFCARE Is pt being admited?: No Condition: Stable Instructions: Acute Nausea and Vomiting (ED), Abdominal Pain (ED) Prescriptions: HYDROcodone/APAP 5-325 [[place] 5/325] 1 each PO Q6HR PRN #14 tablet PRN Reason: Pain Ondansetron [Zofran Odt] 4 mg PO Q8HR PRN #14 tab.rapdis PRN Reason: Nausea And Vomiting Promethazine HCl [Phenergan SUPPOS] 25 mg RC TID PRN #30 supp.rect PRN Reason: Vomiting Referrals: PRIMARY CARE, [Primary Care Provider] - 3-5 Days
--- NOTE | 2017-04-14 17:03 | XRay Report ---
FINAL REPORT EXAM: XR CHEST 1V AP HISTORY: Shortness of breath TECHNIQUE: upright single view chest PRIORS: Correlation made to prior exam of February 05, 2017 FINDINGS: Cardiac and mediastinal contours are unremarkable. No focal pulmonary infiltrate is identified. No pleural fluid collection seen. Pulmonary vasculature is unremarkable. IMPRESSION: Negative single-view chest
--- NOTE | 2017-04-14 17:25 | XRay Report ---
FINAL REPORT EXAM: XR ABDOMEN 2V HISTORY: abdominal pain TECHNIQUE: Supine and upright abdomen PRIORS: None. FINDINGS: Moderate amount of stool and gas present within the colon. No evidence of colonic or small bowel dilatation. No signs of free air. No abnormal calcifications are identified. IMPRESSION: Nonobstructive bowel gas pattern. No acute abnormality seen.
[2017-04-14 18:00] LABS: Bilirubin,Urine NEG (Negative); Blood,Urine NEG (Negative); Color,Urine Yellow (Yellow); Nitrite,Urine NEG (Negative); Urobilinogen,Urine < 2.0 mg/dL (<2.0)
[2017-04-14] MEDS ORDERED: BENADRYL ONE (18:08)
[2017-04-14] MEDS ORDERED: PHENERGAN ONE (18:09)
[2017-04-14] MEDS ORDERED: BENADRYL IV ONE (19:07)
[2017-04-14] MEDS ORDERED: PHENERGAN PO ONE (19:08)
[2017-04-14 20:57] VITALS: BP 159/96
== END 2017-04-14 20:56 | disposition home or self-care (01) ==
LOC: ED 14:57
DX: E11.43 Type 2 diabetes mellitus with diabetic autonomic (poly)neuropathy (principal); K31.84 Gastroparesis; I11.0 Hypertensive heart disease with heart failure; R11.2 Nausea with vomiting, unspecified; F17.200 Nicotine dependence, unspecified, uncomplicated; Z90.49 Acquired absence of other specified parts of digestive tract
CPT/HCPCS: 36415; 71045; 74019; 80053; 81001; 82962; 83690; 83880; 84484; 85025; 93005; 93010; 96374; 96375; 96376; 99284; J1170; J1200; J1940; J2405; Q0169

== ENCOUNTER 2017-09-29 08:55 | Emergency (ER) | payer MEDICAID ==
[2017-09-29] MEDS ORDERED: HALDOL IM ONE (09:56)
[2017-09-29] MEDS ORDERED: NACL 0.9% 1000 ML 1,000 ML IV ONE (09:56)
--- NOTE | 2017-09-29 09:58 | Emergency Department Report ---
Blank Doc - Documentation Documentation: Patient to the ED for 5 days history of abdominal pain with nausea vomiting and diarrhea. Patient states she has a history of gastroparesis and this feels very similar to her episodes before. Patient immediately asked for morphine to relax some muscles from a gastroparesis politely discussed with her dad and not treat gastroparesis with narcotics. Patient is allergic to Reglan. Physical exam was normal besides she has tenderness palpation of abdomen diffusely. Care will be passed off to the mid-level provider with me in consultation
[2017-09-29 10:04] LABS: Basophils % (Auto) 0.3 % (0.0-1.8); Eosinophils # (Auto) 0.1 K/mm3 (0.0-0.4); Eosinophils % (Auto) 1.5 % (0.0-4.3); Hematocrit 46.7 % (30.3-42.9); Hemoglobin 15.5 gm/dl (10.1-14.3); Lymphocytes # (Auto) 1.1 K/mm3 (1.2-5.4); Lymphocytes % (Auto) 17.9 % (13.4-35.0); Mean Corpuscular HGB Conc 33 % (30-34); Mean Corpuscular Hemoglobin 31 pg (28-32); Mean Corpuscular Volume 92 fl (79-97); Monocytes # (Auto) 0.5 K/mm3 (0.0-0.8); Monocytes % (Auto) 7.1 % (0.0-7.3); Platelet Count 268 K/mm3 (140-440); Red Blood Count 5.06 M/mm3 (3.65-5.03); Red Cell Distribution Width 14.7 % (13.2-15.2)
[2017-09-29 10:13] LABS: Albumin 3.8 g/dL (3.9-5); Calcium 9.4 mg/dL (8.4-10.2)
--- NOTE | 2017-09-29 11:56 | XRay Report ---
ABDOMINAL SERIES: History: Nausea. Erect chest film shows no acute or significant changes involving the heart or lung mitchell. There is no evidence of free air beneath the diaphragms. The gas pattern within the abdomen is unremarkable. There is no evidence of bowel dilatation, significant air-fluid levels, or masses. Organ shadows are unremarkable. IMPRESSION: Abdominal series within normal limits.
--- NOTE | 2017-09-29 12:03 | Emergency Department Report ---
Vomiting/Diarrhea - HPI Chief Complaint: Abdominal Pain Stated Complaint: ABD PAIN/HBP Time Seen by Provider: 09/29/17 09:49 Duration: 2 Days Severity: moderate Nausea/Vomiting Severity: Moderate Diarrhea Severity: None Pain Location: Generalized Pain Severity: Severe Symptoms: Yes Able to Tolerate Fluids, No Watery Diarrhea, No Bloody diarrhea, No Fever, No Recent Unusual Foods, No Recent Untreated Water, No Recent use of Antibiotics, No Family w/ Similar Symptoms, No Contacts w/ Similar Symptoms, No Rash, No Hematuria, No Recent URI Symptoms Other History: Is a 57-year-old -Citizen Of [place] female who presents to emergency room with abdominal pain, nausea and vomiting for 5 days. Patient reports history of diabetes type 2, GERD, hypertension, and congestive heart failure. Patient states she has a history of gastroparesis and this feels very similar to her episodes before. Patient reports pain is 10 out of 10 on pain scale and sharp in intensity. Abdominal pain is generalized and constant. She is requesting pain management until she follow up with primary doctor. She reports being allergic to Reglan. Patient reports diarrhea has resolved 2 days ago. Denies dysuria, vaginal bleeding or discharge, chest pain, or shortness of breath. ED Review of Systems ROS: Stated complaint: ABD PAIN/HBP Other details as noted in HPI Constitutional: denies: chills, fever Respiratory: denies: cough, shortness of breath, wheezing Cardiovascular: denies: chest pain, palpitations Gastrointestinal: abdominal pain (generalized abdominal pain), nausea, vomiting. denies: diarrhea (resolved), constipation, hematemesis, melena, hematochezia Musculoskeletal: denies: back pain, joint swelling, arthralgia Neurological: denies: headache, weakness, numbness, paresthesias Psychiatric: denies: anxiety, depression ED Past Medical Hx - Past Medical History Previous Medical History?: Yes Hx Hypertension: Yes Hx Congestive Heart Failure: Yes Hx Diabetes: Yes Hx GERD: Yes Additional medical history: Gastroparesis - Surgical History Past Surgical History?: Yes Hx Cholecystectomy: Yes - Social History Smoking Status: Current Every Day Smoker Substance Use Type: Alcohol - Medications Home Medications: Home Medications Medication Instructions Recorded Confirmed Last Taken Type Ondansetron [Zofran Odt] 4 mg PO Q8HR PRN #14 tab.rapdis 02/05/17 Unknown Rx traMADol [Ultram 50 MG tab] 50 mg PO Q4HR PRN #14 tablet 02/05/17 Unknown Rx traMADol [Ultram 50 MG tab] 50 mg PO Q6HR PRN #12 tablet 02/26/17 Unknown Rx Dicyclomine [Bentyl] 10 mg PO QID PRN #20 capsule 03/04/17 Unknown Rx Famotidine [Pepcid] 20 mg PO QDAY #30 tablet 03/04/17 Unknown Rx Promethazine [Phenergan SUPPOS] 50 mg [place] Q6H PRN #20 supp.rect 03/04/17 Unknown Rx Sucralfate [Carafate] 1 gm PO Q6HR #120 tablet 03/04/17 Unknown Rx HYDROcodone/APAP 5-325 [[place] 1 each PO Q6HR PRN #14 tablet 04/14/17 Unknown Rx 5/325] Ondansetron [Zofran Odt] 4 mg PO Q8HR PRN #14 tab.rapdis 04/14/17 Unknown Rx Promethazine HCl [Phenergan SUPPOS] 25 mg RC TID PRN #30 supp.rect 04/14/17 Unknown Rx Ondansetron [Zofran Odt] 4 mg PO TID PRN #10 tab.rapdis 09/29/17 Unknown Rx Vomiting Diarrhea Exam - Exam General: Vital signs noted. No distress. Alert and acting appropriately. HEENT: Yes Moist Mucous Membranes, No Pharyngeal Erythema, No Pharyngeal Exudates, No Rhinorrhea, No Conjuctival Injection, No Frontal Tenderness, No Maxillary Tenderness Neck: No Adenopathy, No Rigidity Lungs: Yes Clear Lung Sounds, Yes Good Air Exchange, No Wheezes, No Stridor, No Cough, No Nasal Flaring, No Retractions, No Use of Accessory Muscles Heart exam: Regular: Yes, Murmur: No, Tachycardia: No Abdomen: Tenderness: Yes (RUQ and LLQ), Peritoneal Signs: No, Distention: No, Hyperactive Bowel sounds: No Skin exam: Rash: No, Edema: No, Normal turgor: Yes Neurologic: Alert and oriented, no deficits. Musculoskeletal: Unremarkable. ED Course Vital Signs 09/29/17 09/29/17 09:14 09:43 Temperature 98.3 F Pulse Rate 95 H Respiratory 16 18 Rate Blood Pressure 152/95 O2 Sat by Pulse 97 Oximetry ED Medical Decision Making - Lab Data Result diagrams: 09/29/17 09:36 09/29/17 09:36 - Radiology Data Radiology results: report reviewed ABDOMINAL SERIES: History: Nausea. Erect chest film shows no acute or significant changes involving the heart or lung mitchell. There is no evidence of free air beneath the diaphragms. The gas pattern within the abdomen is unremarkable. There is no evidence of bowel dilatation, significant air-fluid levels, or masses. Organ shadows are unremarkable. IMPRESSION: Abdominal series within normal limits. - Medical Decision Making This is a 57 y.o. female that presents with nausea, vomiting and abdominal pain for 5 days. Patient is stable and was examined by me. Vitals stable. Obtained CMP, CBC, lipase, & UA. Lipase normal and all other labs unremarkable. Xray of abdomen series within normal limits. Given haloperidol 5 mg IM and NS 1L once in ER. Reevaluation patient reports feeling better. Patient reports allergy to reglan. Discussed plan with patient and agreed to plan. No further questions noted by the patient. Discharged home in stable condition. Follow up with PCP in 2-3 days. Critical care attestation.: If time is entered above; I have spent that time in minutes in the direct care of this critically ill patient, excluding procedure time. ED Disposition Clinical Impression: Gastroparesis due to DM Disposition: DC-01 TO HOME OR SELFCARE Is pt being admited?: No Does the pt Need Aspirin: No Condition: Stable Instructions: Abdominal Pain (ED), Diabetes Mellitus Type 2 in Adults (ED), Acute Nausea and Vomiting (ED) Additional Instructions: Follow up with primary care provider for continued management of gastroparesis. Prescriptions: Ondansetron [Zofran Odt] 4 mg PO TID PRN #10 tab.rapdis PRN Reason: Nausea And Vomiting Referrals: [facility] [place] [Outside] - 3-5 Days [facility] [Outside] - 3-5 Days [facility] [Provider Group] - 3-5 Days Forms: Work/School Release Form(ED) Time of Disposition: 13:24 Print Language: KAZAKH
[2017-09-29 13:38] VITALS: BP 146/91
== END 2017-09-29 13:37 | disposition home or self-care (01) ==
LOC: ED 08:55
DX: E11.43 Type 2 diabetes mellitus with diabetic autonomic (poly)neuropathy (principal); K31.84 Gastroparesis; I10 Essential (primary) hypertension; I50.9 Heart failure, unspecified; K21.9 Gastro-esophageal reflux disease without esophagitis; F17.200 Nicotine dependence, unspecified, uncomplicated; Z90.49 Acquired absence of other specified parts of digestive tract; Z79.899 Other long term (current) drug therapy; Z88.8 Allergy status to other drugs, medicaments and biological substances
CPT/HCPCS: 36415; 74022; 80053; 82962; 83690; 85025; 96360; 96372; 99284; J1630; J7030

== ENCOUNTER 2018-06-19 16:25 | Emergency (ER) | payer MEDICAID ==
[2018-06-19] MEDS ORDERED: NACL 0.9% 1000 ML 1,000 ML IV ONE ×2 (16:57→19:29)
--- NOTE | 2018-06-19 16:58 | Emergency Department Report ---
Chief Complaint: Abdominal Pain Stated Complaint: STOMACH PAIN Time Seen by Provider: 06/19/18 16:55 - HPI History of Present Illness: This is a 57 y.o. female that presents to the ER with abdominal pain, nausea and vomiting that started today. PMH DM, HTN, CHF, HLD, and gastroparesis. Current smoker, 1 ppw Denies diarrhea and chest pain. - Exam Vital Signs: Vital Signs 06/19/18 16:56 Temperature 98.1 F Pulse Rate 125 H Respiratory 24 Rate Blood Pressure 213/115 O2 Sat by Pulse 99 Oximetry MSE screening note: Focused history and physical exam performed. Due to findings the following was ordered: Labs and CT of abdomen Main ED for further evaluation. ED Disposition for MSE Condition: Stable Instructions: Abdominal Pain (ED)
[2018-06-19 17:39] LABS: Hemoglobin 15.2 gm/dl (10.1-14.3); Mean Corpuscular HGB Conc 34 % (30-34); Mean Corpuscular Volume 88 fl (79-97); Platelet Count 311 K/mm3 (140-440); Red Blood Count 5.13 M/mm3 (3.65-5.03); Red Cell Distribution Width 13.4 % (13.2-15.2)
[2018-06-19 17:41] LABS: Lymphocytes % (Auto) 21.6 % (13.4-35.0); Monocytes % (Auto) 8.6 % (0.0-7.3)
[2018-06-19 17:42] LABS: Basophils % (Auto) 0.5 % (0.0-1.8); Eosinophils # (Auto) 0.1 K/mm3 (0.0-0.4); Eosinophils % (Auto) 1.2 % (0.0-4.3); Lymphocytes # (Auto) 1.7 K/mm3 (1.2-5.4); Monocytes # (Auto) 0.7 K/mm3 (0.0-0.8)
[2018-06-19] MEDS ORDERED: HALDOL IM STA (17:47)
--- NOTE | 2018-06-19 17:48 | Emergency Department Report ---
ED Abdominal Pain HPI - General Chief Complaint: Abdominal Pain Stated Complaint: STOMACH PAIN Time Seen by Provider: 06/19/18 16:55 Source: patient, RN notes reviewed, old records reviewed Mode of arrival: Ambulatory Limitations: No Limitations - History of Present Illness Initial Comments: This is a 57-year-old female whom I evaluated in the past. Past medical history includes diabetes, GERD, hypertension, gastroparesis. Also has very mild renal insufficiency, noted on prior laboratory studies. The patient presents to the emergency room today with a complaint of her typical gastroparesis pain. The patient reports that her pain started today. She reports it is all over her abdomen. She reports that it is constant. It apparently worsens with palpation. It decreases with position, rest, and medication. The patient denies urinary symptoms. The patient denies chest pain, shortness of breath. The patient walked into this emergency room, and into her examination room, in no significant distress. After laying on the stretcher, she began to moan, and cry. She was initially medicated with 5 mg of Haldol intramuscular. As per her treating nurse, this greatly improved her symptoms. The patient had no episodes of active vomiting. I went back to go reassess the patient, Micah team was placing an IV. While the IV was being placed, the patient began to cry, and complained of additional pain. She was therefore given 0.5 mg of hydromorphone. The patient has now been in this emergency department for a few hours, and she is sleeping comfortably, on her stretcher, and in no acute distress. She's had no active episodes of vomiting. She endorses no additional complaints to myself or to the nursing staff. Complaint: abdominal pain -: Gradual Location: diffuse Severity scale (0 -10): 10 Quality: other Consistency: other Improves With: other Worsens With: other Associated Symptoms: nausea, vomiting - Related Data Previous Rx's Medication Instructions Recorded Last Taken Type Ondansetron [Zofran Odt] 4 mg PO Q8HR PRN #14 tab.rapdis 02/05/17 Unknown Rx traMADol [Ultram 50 MG tab] 50 mg PO Q4HR PRN #14 tablet 02/05/17 Unknown Rx traMADol [Ultram 50 MG tab] 50 mg PO Q6HR PRN #12 tablet 02/26/17 Unknown Rx Promethazine [Phenergan SUPPOS] 50 mg [place] Q6H PRN #20 supp.rect 03/04/17 Unknown Rx HYDROcodone/APAP 5-325 [[place] 1 each PO Q6HR PRN #14 tablet 04/14/17 Unknown Rx 5/325] Ondansetron [Zofran Odt] 4 mg PO TID PRN #10 tab.rapdis 09/29/17 Unknown Rx Dicyclomine [Bentyl] 10 mg PO QID PRN #20 capsule 06/19/18 Unknown Rx Famotidine [Pepcid] 20 mg PO QDAY #30 tablet 06/19/18 Unknown Rx Ondansetron [Zofran ODT TAB] 4 mg PO Q8HR PRN #14 tab.rapdis 06/19/18 Unknown Rx Promethazine HCl [Phenergan SUPPOS] 25 mg RC TID PRN #30 supp.rect 06/19/18 Unknown Rx Sucralfate [Carafate] 1 gm PO Q6HR #120 tablet 06/19/18 Unknown Rx Allergies Allergy/AdvReac Type Severity Reaction Status Date / Time metoclopramide [From Reglan] AdvReac Unknown Verified 06/19/18 16:56 ED Review of Systems ROS: Stated complaint: STOMACH PAIN Other details as noted in HPI Constitutional: malaise. denies: fever Eyes: denies: eye discharge ENT: denies: epistaxis Respiratory: denies: cough Cardiovascular: denies: chest pain Gastrointestinal: abdominal pain, nausea, vomiting Genitourinary: denies: urgency, dysuria Musculoskeletal: denies: back pain Neurological: weakness Psychiatric: anxiety ED Past Medical Hx - Past Medical History Hx Hypertension: Yes Hx Congestive Heart Failure: Yes Hx Diabetes: Yes Hx GERD: Yes Additional medical history: Gastroparesis - Surgical History Hx Cholecystectomy: Yes - Social History Smoking Status: Current Every Day Smoker Substance Use Type: Alcohol - Medications Home Medications: Home Medications Medication Instructions Recorded Confirmed Last Taken Type Ondansetron [Zofran Odt] 4 mg PO Q8HR PRN #14 tab.rapdis 02/05/17 Unknown Rx traMADol [Ultram 50 MG tab] 50 mg PO Q4HR PRN #14 tablet 02/05/17 Unknown Rx traMADol [Ultram 50 MG tab] 50 mg PO Q6HR PRN #12 tablet 02/26/17 Unknown Rx Promethazine [Phenergan SUPPOS] 50 mg NM Q6H PRN #20 supp.rect 03/04/17 Unknown Rx HYDROcodone/APAP 5-325 [[place] 1 each PO Q6HR PRN #14 tablet 04/14/17 Unknown Rx 5/325] Ondansetron [Zofran Odt] 4 mg PO TID PRN #10 tab.rapdis 09/29/17 Unknown Rx Dicyclomine [Bentyl] 10 mg PO QID PRN #20 capsule 06/19/18 Unknown Rx Famotidine [Pepcid] 20 mg PO QDAY #30 tablet 06/19/18 Unknown Rx Ondansetron [Zofran ODT TAB] 4 mg PO Q8HR PRN #14 tab.rapdis 06/19/18 Unknown Rx Promethazine HCl [Phenergan SUPPOS] 25 mg RC TID PRN #30 supp.rect 06/19/18 Unknown Rx Sucralfate [Carafate] 1 gm PO Q6HR #120 tablet 06/19/18 Unknown Rx ED Physical Exam - General Limitations: No Limitations General appearance: alert, anxious - Head Head exam: Present: atraumatic, normocephalic - Eye Eye exam: Present: normal appearance, EOMI. Absent: nystagmus - ENT ENT exam: Present: normal exam, normal orophraynx, mucous membranes moist, normal external ear exam - Neck Neck exam: Present: normal inspection, full ROM. Absent: tenderness, meningismus - Respiratory Respiratory exam: Present: normal lung sounds bilaterally. Absent: respiratory distress - Cardiovascular Cardiovascular Exam: Present: normal rhythm, tachycardia, normal heart sounds. Absent: systolic murmur, diastolic murmur, rubs, gallop - GI/Abdominal GI/Abdominal exam: Present: soft, tenderness. Absent: distended, guarding, rebound, rigid, pulsatile mass - Extremities Exam Extremities exam: Present: normal inspection, full ROM, other (2+ pulses noted in the bilateral upper, lower extremities. Compartments soft. No long bony tenderness. The pelvis is stable.). Absent: pedal edema, joint swelling, calf tenderness - Back Exam Back exam: Present: normal inspection, full ROM. Absent: tenderness, CVA tenderness (R), paraspinal tenderness, vertebral tenderness - Neurological Exam Neurological exam: Present: alert, normal gait, other (Extraocular movements intact. Tongue midline. No facial droop. Facial sensation intact to light touch in the V1, V2, V3 distribution bilaterally. 5 and 5 strength in 4 extremities.. Sensation is intact to light touch in 4 extremities.). Absent: motor sensory deficit - Psychiatric Psychiatric exam: Present: anxious - Skin Skin exam: Present: warm, dry, intact, normal color. Absent: rash ED Course Vital Signs 06/19/18 06/19/18 06/19/18 16:56 17:42 17:45 Temperature 98.1 F Pulse Rate 125 H Respiratory 24 Rate Blood Pressure 213/115 225/127 O2 Sat by Pulse 99 95 90 Oximetry 06/19/18 06/19/18 06/19/18 18:00 18:15 18:30 Temperature Pulse Rate 115 H Respiratory 19 26 H Rate Blood Pressure 202/115 208/131 207/122 O2 Sat by Pulse 94 95 91 Oximetry 06/19/18 06/19/18 06/19/18 18:51 19:01 19:15 Temperature Pulse Rate 113 H 116 H 115 H Respiratory 75 H 17 24 Rate Blood Pressure O2 Sat by Pulse 90 96 96 Oximetry 06/19/18 06/19/18 06/19/18 19:31 19:45 20:00 Temperature Pulse Rate 110 H 110 H 106 H Respiratory 19 24 20 Rate Blood Pressure 220/131 206/126 192/107 O2 Sat by Pulse 95 95 91 Oximetry - Reevaluation(s) Reevaluation #1: 06/19/18 19:50 Differential diagnosis, including but not limited to: Gastroparesis, GERD, gastritis, hiatal hernia, cyclic vomiting syndrome, narcotic bowel syndrome, inflammatory bowel disease, irritable bowel syndrome Assessment and plan: 57-year-old female with likely recurrent episode of gastroparesis. The patient is afebrile and hypertensive with tachycardia. Tachycardia likely secondary to pain and anxiety. After aggressive medication with Haldol, hydromorphone, tachycardia improving, and patient's anxiety appears to be improving. The patient is now resting comfortably, and her stretcher, and she is in no acute distress. Her presentation today appears similar to prior presentations that I have personally evaluated this patient for. Elevated blood pressure is reviewed and appreciated, please reference the [employer] clinical policy on hypertension which is not acutely symptomatic. Laboratory studies today. To be at baseline, EKG appears to be unchanged from prior. No active vomiting after a few hours. The patient may follow up with an outpatient primary care doctor for her chronic mild renal insufficiency, and elevated blood pressure. The patient may follow up with an outpatient pulverizing and sifting operator for her acute on chronic abdominal pain. A noncontrast CT scan of the abdomen and pelvis was negative for acute disease, and appeared to be unchanged from prior. Reevaluation #2: 06/19/18 20:20 Heart rate currently in the 90s. Blood pressure improved. No active vomiting. We will discharge the patient. ED Medical Decision Making - Lab Data Result diagrams: 06/19/18 16:59 06/19/18 16:59 Vital Signs 06/19/18 06/19/18 06/19/18 16:56 17:42 17:45 Temperature 98.1 F Pulse Rate 125 H Respiratory 24 Rate Blood Pressure 213/115 225/127 O2 Sat by Pulse 99 95 90 Oximetry 06/19/18 06/19/18 06/19/18 18:00 18:15 18:30 Temperature Pulse Rate 115 H Respiratory 19 26 H Rate Blood Pressure 202/115 208/131 207/122 O2 Sat by Pulse 94 95 91 Oximetry 06/19/18 06/19/18 18:51 19:01 Temperature Pulse Rate 113 H 116 H Respiratory 75 H 17 Rate Blood Pressure O2 Sat by Pulse 90 96 Oximetry Labs 06/19/18 06/19/18 16:59 16:59 WBC 7.8 RBC 5.13 H Hgb 15.2 H Hct 45.0 H MCV 88 MCH 30 MCHC 34 RDW 13.4 Plt Count 311 Lymph % (Auto) 21.6 [place] % (Auto) 8.6 H Eos % (Auto) 1.2 Baso % (Auto) 0.5 Lymph # 1.7 [place] # 0.7 Eos # 0.1 Baso # 0.0 Seg Neutrophils % 68.1 Seg Neutrophils # 5.3 Sodium 137 Potassium 4.2 Chloride 98.4 Carbon Dioxide 20 L Anion Gap 23 BUN 19 H Creatinine 1.3 H Estimated GFR 51 BUN/Creatinine Ratio 15 Glucose 191 H Calcium 9.9 Total Bilirubin 0.40 AST 13 ALT 13 Alkaline Phosphatase 67 Total Protein 7.5 Albumin 3.8 L Albumin/Globulin Ratio 1.0 Lipase 45 - EKG Data 06/19/18 19:53 EKG shows sinus tachycardia, 111 bpm, normal axis, atrial enlargement, QTC prolonged, poor R-wave progression, hypertensive changes noted, this is an abnormal EKG, this is not consistent with ST elevation myocardial infarction, it appears to be unchanged from prior EKG from 04/14/2017. - Radiology Data Radiology results: report reviewed, image reviewed Noncontrast CT scan of the abdomen and pelvis is negative for acute disease. Critical care attestation.: If time is entered above; I have spent that time in minutes in the direct care of this critically ill patient, excluding procedure time. ED Disposition Clinical Impression: Gastroparesis, Elevated blood pressure reading Disposition: DC- TO HOME OR SELFCARE Is pt being admited?: No Does the pt Need Aspirin: No Condition: Good Instructions: Acute Nausea and Vomiting (ED), Hypertension (ED) Additional Instructions: Avoid consumption of Motrin, ibuprofen, Naprosyn, Aleve, heavy, spicy foods. Take the pain medications as needed/directed. Take the nausea medications as needed/directed. Follow up with a primary care doctor or pulverizing and sifting operator for presumed gastroparesis within the next 7-10 days. Symptoms of gastroparesis will likely get better and worse, over the course of the patient's lifetime. Losing weight, improving diabetes, decrease consumption of sugary drinks, simple carbohydrates, and avoiding heavy and spicy foods may help to improve patient's symptoms over long-term Of time. Please of the patient had an elevated blood pressure in the emergency room. This should be followed up by primary care doctor within the next 4-6 weeks. Long-term complications of hypertension and elevated blood pressure includes stroke, heart attack, disability, paralysis, loss of quality of life. Please return to the emergency room right away with new, worsening or different symptoms. Prescriptions: Dicyclomine [Bentyl] 10 mg PO QID PRN #20 capsule PRN Reason: Pain Sucralfate [Carafate] 1 gm PO Q6HR #120 tablet Famotidine [Pepcid] 20 mg PO QDAY #30 tablet Promethazine HCl [Phenergan SUPPOS] 25 mg RC TID PRN #30 supp.rect PRN Reason: Vomiting Ondansetron [Zofran ODT TAB] 4 mg PO Q8HR PRN #14 tab.rapdis PRN Reason: Nausea And Vomiting Referrals: LEONARDA WILCOX MD [Primary Care Provider] - 3-5 Days [facility] [Provider Group] - 3-5 Days
[2018-06-19] MEDS ORDERED: DILAUDID IV ONE (18:20)
[2018-06-19 18:22] LABS: Albumin 3.8 g/dL (3.9-5); Calcium 9.9 mg/dL (8.4-10.2)
--- NOTE | 2018-06-19 19:29 | Cat Scan Report ---
PROCEDURE: CT ABDOMEN PELVIS WO CON TECHNIQUE: Computerized axial tomography of the abdomen and pelvis was performed without intravenous contrast. This study is performed without intravascular contrast material and its sensitivity for ab dominal and pelvic pathology, including neoplasms, inflammation, abscess, free fluid, thrombosis, art erial dissection and infarction, is reduced compared with a contrast enhanced study. CT DOSE LENGTH PRODUCT: 942.2 mGycm HISTORY: abd pain N/V COMPARISONS: CT A/P 02/25/2017 . FINDINGS: Visualized lower thorax: cardiomegaly. Liver: Normal size and attenuation. Spleen: Normal size and attenuation. Gallbladder and biliary system: Normal. Pancreas: Normal. Adrenals: Normal. Kidneys: Normal. GI tract: There is a tiny hiatal hernia . Lymph nodes and mesentery: Normal. Vasculature: Moderate calcification of aorta is seen.. Bladder: Normal. Reproductive organs: Normal. Peritoneum: No free fluid. Musculoskeletal structures: Bilateral atrophic facet joint degenerative changes are present in the lo wer lumbar spine. Other: None. IMPRESSION: No acute intra-abdominal process noted. Small hiatal hernia. Mild cardiomegaly This document is electronically signed by Tammy Rawls MD., June 19 2018 07:27:15 PM ET
[2018-06-19 22:25] VITALS: BP 194/101
== END 2018-06-19 20:45 | disposition home or self-care (01) ==
LOC: ED 16:25
DX: R03.0 Elevated blood-pressure reading, without diagnosis of hypertension (principal); I11.0 Hypertensive heart disease with heart failure; I50.9 Heart failure, unspecified; F17.200 Nicotine dependence, unspecified, uncomplicated; E11.43 Type 2 diabetes mellitus with diabetic autonomic (poly)neuropathy; K31.84 Gastroparesis; K21.9 Gastro-esophageal reflux disease without esophagitis; Z90.49 Acquired absence of other specified parts of digestive tract; Z79.899 Other long term (current) drug therapy; Z88.8 Allergy status to other drugs, medicaments and biological substances
CPT/HCPCS: 36415; 74176; 80053; 83690; 85025; 93005; 93010; 96361; 96372; 96374; 99284; J1170; J1630; J7030